=== PATIENT | female | born 1960 | race African-American/Black ===

== ENCOUNTER 2021-09-22 04:29 | Day surgery (SDC) | payer BC ==
[2021-09-17 11:32] VITALS: BMI 40.4
[2021-09-22] MEDS ORDERED: GABAPENTIN 300 MG CAPSULE PO ONE (08:20)
[2021-09-22] MEDS ORDERED: TRANEXAMIC ACID 1000 MG/10 ML VIAL IVPUSH ONE (08:20)
[2021-09-22] MEDS ORDERED: ACETAMINOPHEN 1000 MG/100 ML BAG IVPB ONE (08:20)
[2021-09-22] MEDS ORDERED: ceFAZolin SODIUM 1 GM VIAL ONE ×2 (10:44→13:09)
[2021-09-22] MEDS ORDERED: GABAPENTIN 300 MG CAPSULE ONE (10:44)
[2021-09-22] MEDS ORDERED: ACETAMINOPHEN INJECTION 100 ML IVPB ONE (10:45)
[2021-09-22] MEDS ORDERED: INDOCYANINE GREEN 25 MG/10 ML VIAL IVPUSH ONE (11:00)
[2021-09-22] MEDS ORDERED: BUPIVACAINE HCL/PF 0.5% (5MG/ML) 10 ML VIAL ONE (11:01)
[2021-09-22] MEDS ORDERED: fentaNYL CITRATE 250 MCG/5 ML VIAL ONE (11:49)
[2021-09-22] MEDS ORDERED: LIDOCAINE HCL 2% 100 MG/5 ML DISP.SYRIN ONE (11:49)
[2021-09-22] MEDS ORDERED: ROCURONIUM BROMIDE 50 MG/5 ML SYRINGE ONE ×2 (11:49→13:08)
[2021-09-22] MEDS ORDERED: PROPOFOL 20 ML ONE ×2 (11:50→13:54)
[2021-09-22] MEDS ORDERED: MIDAZOLAM HCL 2 MG/2 ML SINGLE DOSE VIAL ONE (11:50)
[2021-09-22] MEDS ORDERED: SUCCINYLCHOLINE CHLORIDE 200 MG/10 ML SYRINGE ONE (11:50)
[2021-09-22] MEDS ORDERED: ONDANSETRON 4 MG/2 ML VIAL IVPUSH PRN ×2 (11:58→14:46)
[2021-09-22] MEDS ORDERED: PROMETHAZINE HCL 25 MG/1 ML VIAL IVPUSH PRN (11:58)
[2021-09-22] MEDS ORDERED: oxyCODONE HCL 5 MG TABLET PO PRN ×2 (11:58)
[2021-09-22] MEDS ORDERED: LACTATED RINGERS SOLUTION 1,000 ML IV SCH ×2 (12:00→15:00)
[2021-09-22] MEDS ORDERED: CEFAZOLIN 2 GM in DEXTROSE 5%-WATER 100 ML IVPB ONE (12:45)
[2021-09-22] MEDS ORDERED: ceFAZolin SODIUM 1 GM VIAL IVPB ONE (12:50)
[2021-09-22] MEDS ORDERED: BUPIVACAINE HCL/PF 0.5% (5MG/ML) 10 ML VIAL IJ ONE (12:58)
[2021-09-22] MEDS ORDERED: HYDROmorphone HCl 2 MG/ML VIAL ONE (12:59)
[2021-09-22] MEDS ORDERED: NEOSTIGMINE METHYLSULFATE 0.5 MG/ML - 10 ML MDV ONE (13:08)
[2021-09-22] MEDS ORDERED: ACETAMINOPHEN 500 MG TABLET (FP) PO PRN ×2 (14:27→19:58)
[2021-09-22] MEDS: ACETAMINOPHEN 500 MG TABLET (FP) PO SCH (21:05)
[2021-09-22] MEDS: CEFAZOLIN 2 GM in SODIUM CHLORIDE 100 ML IVPB SCH (21:10)
[2021-09-22] MEDS ORDERED: ATORVASTATIN CA 10 MG TABLET (FP) PO SCH (22:00)
[2021-09-23] MEDS: ACETAMINOPHEN 500 MG TABLET (FP) PO SCH ×2 (02:57→10:15)
[2021-09-23] MEDS: CEFAZOLIN 2 GM in SODIUM CHLORIDE 100 ML IVPB SCH (05:10)
[2021-09-23 08:36] LABS: HEMATOCRIT 36.5 % (32.4-45.2); HEMOGLOBIN 12.1 GM/dL (10.7-15.3); MCH 27.2 pg (25.7-33.7); MCHC 33.1 g/dl (32.0-36.0); MEAN CELL VOLUME 82.3 fl (80-96); MEAN PLT VOLUME 8.1 fl (7.5-11.1); PLATELET COUNT 258 10^3/uL (134-434); RBC 4.43 M/mm3 (3.60-5.2); RDW 14.7 % (11.6-15.6); WHITE BLOOD COUNT 12.1 K/mm3 (4.0-10.0)
[2021-09-23 08:51] LABS: BLOOD UREA NITROGEN 15.3 mg/dL (7-18); CALCIUM 8.8 mg/dL (8.5-10.1)
[2021-09-23 08:55] LABS: CREATININE 1.1 mg/dL (0.55-1.3)
[2021-09-23] MEDS ORDERED: HYDROCHLOROTHIAZIDE 25 MG TABLET (FP) PO SCH (10:00)
[2021-09-23 11:36] VITALS: BP 119/69; PULSE 90; TEMP 98.6
[2021-09-23] MEDS ORDERED: ENOXAPARIN NA (PORCINE) 40 MG/0.4 ML DISP.SYRIN SQ SCH (11:45)
== END 2021-09-23 12:30 | disposition home or self-care (01) ==
LOC: JASUSAT 04:29 → J3W 17:16 → JASUSAT 09-23 12:30
PROVIDERS: ATTEND Obstetrics & Gynecology Gynecologic Oncology
PROC: 0UT74ZZ Resection of Bilateral Fallopian Tubes, Percutaneous Endoscopic Approach (ICD-10-PCS; 2021-09-22)
PROC: 8E0W4CZ Robotic Assisted Procedure of Trunk Region, Percutaneous Endoscopic Approach (ICD-10-PCS; 2021-09-22)
PROC: 0UT94ZZ Resection of Uterus, Percutaneous Endoscopic Approach (ICD-10-PCS; principal; 2021-09-22 12:00)
PROC: 0UT24ZZ Resection of Bilateral Ovaries, Percutaneous Endoscopic Approach (ICD-10-PCS; 2021-09-22 12:00)
DX: N80.0 Endometriosis of uterus (principal); N84.0 Polyp of corpus uteri; D25.9 Leiomyoma of uterus, unspecified; N83.8 Other noninflammatory disorders of ovary, fallopian tube and broad ligament; E66.01 Morbid (severe) obesity due to excess calories; Z68.41 Body mass index [BMI] 40.0-44.9, adult
CPT/HCPCS: 58571; S2900; 36415; 80048; 85027; 86850; 86900; 86901; 94760; J0131